=== PATIENT | male | born 1955 | race Caucasian/White ===

== ENCOUNTER → 2017-01-15 | Outpatient (CLI) | payer OTHER ==
[~2017-01-15] MED LIST: ALBUTEROL0.09 MG/A2 INH; ANDROGEL1% TP; ATIVAN1 MG; ATIVAN1 MG PO; CHANTIX STARTER1 TAB PO; COUMADIN10 M1 PO; DULERA; FLEXERIL5 MG PO; HYDROCODONE BIT1 T11 PO; LOVENOX80 MG/0.8 SC; Lovenox80 MG/0.8 SC; MOTRIN800 MG PO; NORCO 7.5-3251 EACH PO; OYSTER SHELL1000 MG; PREVACID30 M1; PRILOSEC20 MG PO; PROAIR HFA8.5 GM INH; PROPYLTHIOURACI50 MG; SYMBICORT1 AE1; TRAMADOL HCL50 MG PO; XARELTO15 M1 PO; ZITHROMAX Z PA250 MG PO
== END | disposition home or self-care (01) ==
LOC: RAD 13:55
DX: R06.02 Shortness of breath (principal); R07.89 Other chest pain; F17.200 Nicotine dependence, unspecified, uncomplicated; J44.9 Chronic obstructive pulmonary disease, unspecified

== ENCOUNTER → 2017-01-31 | Outpatient (CLI) | payer OTHER | END | disposition home or self-care (01) | LOC: LAB 10:02 | DX: R41.3 Other amnesia (principal) ==

== ENCOUNTER → 2021-02-16 | Outpatient (CLI) | payer MEDICARE | END | disposition home or self-care (01) | LOC: RAD 10:49 | PROVIDERS: ATTEND Family Medicine | DX: M51.36 Other intervertebral disc degeneration, lumbar region (principal); M47.816 Spondylosis without myelopathy or radiculopathy, lumbar region; M25.559 Pain in unspecified hip; M25.561 Pain in right knee; M25.562 Pain in left knee; Z90.49 Acquired absence of other specified parts of digestive tract ==